=== PATIENT | female | born 1955 ===

== ENCOUNTER → 2018-12-27 22:02 | Outpatient (REF) | payer BC, OTHER, SELFPAY ==
[2018-12-27 22:57] LABS: Alanine Aminotransferase 25 IU/L (9-52); Albumin 4.4 g/dL (3.5-5.0); Albumin Globulin Ratio 1.5 (1.0-2.8); Alkaline Phosphatase 68 U/L (38-126); Aspartate Aminotransferase 20 IU/L (14-36); BUN Creatinine Ratio 18.8 (6-22); Bilirubin Total 0.4 mg/dL (0.2-1.3); Blood Urea Nitrogen 15 mg/dL (7-17); Calcium 9.3 mg/dL (8.4-10.2); Carbon Dioxide 27 mmol/L (22-32); Chloride 104 mmol/L (98-107); Cholesterol 178 mg/dL (140-199); Estimated Glomerular Filt Rate > 60.0 mL/min (>60); Globulin 2.9 g/dL (1.7-4.1); Glucose 97 mg/dL (80-110); HDL Cholesterol 71 mg/dL (40-60); HEMOLYSIS < 15 (0-50); LDL Cholesterol Calculated 82 mg/dL (<100); Potassium 4.7 mmol/L (3.4-5.1); Sodium 139 mmol/L (137-145); Total Protein 7.3 g/dL (6.3-8.2); Triglycerides 124 mg/dL (35-150)
[2018-12-28 00:26] LABS: Progesterone, Total 0.55 ng/mL
[2018-12-30 13:46] LABS: Testosterone,Free 1.5
[2018-12-31 14:41] LABS: Estrogen 80.8 pg/mL
== END ==
LOC: LAB 22:02
PROVIDERS: Visit Provider Naturopath
DX: R00.2 Palpitations (principal); F90.0 Attention-deficit hyperactivity disorder, predominantly inattentive type; N95.1 Menopausal and female climacteric states; E78.5 Hyperlipidemia, unspecified; Z13.88 Encounter for screening for disorder due to exposure to contaminants
CPT/HCPCS: 80053; 80061; 82672; 83825; 84144; 84402; 84403